=== PATIENT | female | born 1970 | race Caucasian/White ===

== ENCOUNTER 2020-04-25 01:58 | Emergency (ER) | payer MEDICAID ==
[~2020-04-25] VITALS: Ht 158.8 cm; Wt 68.2 kg
[2020-04-25 02:25] LABS: BASOPHILS % (AUTO) 0.4 % (0.0-2.0); EOSINOPHILS % (AUTO) 1.2 % (1.0-6.0); HEMATOCRIT 40.5 % (36-46); HEMOGLOBIN 13.7 g/dL (12.0-16.0); LYMPHOCYTES # (AUTO) 3.3 K/uL (1.0-4.8); LYMPHOCYTES % (AUTO) 46.9 % (22.0-44.0); MEAN CORPUSCULAR HGB CONC 33.8 G/dL (31.0-37.0); MEAN CORPUSCULAR VOLUME 89 fL (80-100); MONOCYTES # (AUTO) 0.4 K/uL (0.1-1.0); MONOCYTES % (AUTO) 6.3 % (2.0-9.0); NEUTROPHILS # (AUTO) 3.2 K/uL (1.8-7.7); NEUTROPHILS % (AUTO) 45.2 % (40.0-70.0); PLATELET COUNT (AUTO) 276 K/uL (150-450); RED BLOOD CELL COUNT(AUTO) 4.56 MIL/uL (4.00-5.20); RED CELL DISTRIBUTION WIDTH 13.5 % (11.5-14.5)
[2020-04-25 02:34] LABS: ANION GAP 12 mmol/L (8-16); CALCIUM, TOTAL 9.2 mg/dL (8.8-10.5); CARBON DIOXIDE 26 mmol/L (22-29); CHLORIDE 104 mmol/L (98-107); CREATININE 0.73 mg/dL (0.60-1.30); GLOMERULAR FILTR. RATE CALC > 60 mL/min (>60); GLUCOSE,RANDOM 110 mg/dL (70-110); POTASSIUM 3.6 mmol/L (3.5-5.1); SODIUM SERUM 142 mmol/L (136-145); UREA NITROGEN, BLOOD 9 mg/dL (7-18)
[2020-04-25 02:40] LABS: ALANINE AMINOTRANSFERASE 40 U/L (12-78); ALBUMIN 3.6 g/dL (3.4-5.0); ALKALINE PHOSPHATASE 131 U/L (46-116); ASPARTATE AMINOTRANSFERASE 24 U/L (15-37); BILIRUBIN,TOTAL 0.4 mg/dL (0.1-1.0); TOTAL PROTEIN, SERUM 7.2 g/dL (6.4-8.2)
[2020-04-25 04:39] VITALS: BP 126/66
== END 2020-04-25 07:06 | disposition home or self-care (01) ==
LOC: EMS 02:04
DX: F20.9 Schizophrenia, unspecified (principal); F15.10 Other stimulant abuse, uncomplicated; F17.210 Nicotine dependence, cigarettes, uncomplicated
CPT/HCPCS: 36415; 80053; 85025; 99284; G0480

== ENCOUNTER 2020-08-11 19:18 | Inpatient (IN) | payer MEDICAID ==
[~2020-08-11] VITALS: Ht 160 cm; Wt 74.0 kg
[2020-08-11 20:27] LABS: COVID AG,FIA SOURCE NASOPHARYNGEAL
[2020-08-11] MEDS ORDERED: ZOLPIDEM TARTRATE 10 MG TABLET PO PRN (21:30)
[2020-08-11] MEDS ORDERED: LORazepam 2 MG/ML VIAL IM ONE (22:00)
[2020-08-11] MEDS ORDERED: DiphenhydrAMINE HCL 50 MG/ML VIAL IM ONE (22:00)
[2020-08-11] MEDS ORDERED: HALOPERIDOL LACTATE 5 MG/ML VIAL IM ONE (22:00)
[2020-08-11 23:47] LABS: GLUCOSE,POINT OF CARE 125 MG/DL (70-110)
[2020-08-11 23:56] LABS: BASOPHILS % (AUTO) 0.3 % (0.0-2.0); EOSINOPHILS % (AUTO) 1.4 % (1.0-6.0); HEMATOCRIT 40.1 % (36-46); HEMOGLOBIN 13.4 g/dL (12.0-16.0); LYMPHOCYTES # (AUTO) 3.7 K/uL (1.0-4.8); LYMPHOCYTES % (AUTO) 55.5 % (22.0-44.0); MEAN CORPUSCULAR HEMOGLOBIN 29.4 pg (26.0-34.0); MEAN CORPUSCULAR HGB CONC 33.4 G/dL (31.0-37.0); MEAN CORPUSCULAR VOLUME 88 fL (80-100); MONOCYTES # (AUTO) 0.4 K/uL (0.1-1.0); MONOCYTES % (AUTO) 5.5 % (2.0-9.0); NEUTROPHILS # (AUTO) 2.5 K/uL (1.8-7.7); NEUTROPHILS % (AUTO) 37.3 % (40.0-70.0); PLATELET COUNT (AUTO) 244 K/uL (150-450); RED BLOOD CELL COUNT(AUTO) 4.55 MIL/uL (4.00-5.20); RED CELL DISTRIBUTION WIDTH 13.5 % (11.5-14.5)
[2020-08-12 00:10] LABS: ANION GAP 9 mmol/L (8-16); CALCIUM, TOTAL 8.8 mg/dL (8.8-10.5); CARBON DIOXIDE 26 mmol/L (22-29); CHLORIDE 107 mmol/L (98-107); CREATININE 0.69 mg/dL (0.60-1.30); GLOMERULAR FILTR. RATE CALC > 60 mL/min (>60); GLUCOSE,RANDOM 105 mg/dL (70-110); POTASSIUM 3.5 mmol/L (3.5-5.1); SODIUM SERUM 142 mmol/L (136-145); UREA NITROGEN, BLOOD 9 mg/dL (7-18)
[2020-08-12 00:16] LABS: ALANINE AMINOTRANSFERASE 38 U/L (12-78); ALBUMIN 3.4 g/dL (3.4-5.0); ALKALINE PHOSPHATASE 130 U/L (46-116); ASPARTATE AMINOTRANSFERASE 22 U/L (15-37); BILIRUBIN,TOTAL 0.4 mg/dL (0.1-1.0); TOTAL PROTEIN, SERUM 6.3 g/dL (6.4-8.2)
[2020-08-12] MEDS ORDERED: LOPERAMIDE HCL 2 MG CAPSULE PO PRN (07:45)
[2020-08-12] MEDS ORDERED: PETROLATUM,WHITE 28 GM JELLY TP PRN (07:45)
[2020-08-12] MEDS ORDERED: DOCUSATE SODIUM 100 MG CAPSULE PO PRN (07:45)
[2020-08-12] MEDS ORDERED: MAG HYDROX/AL HYDROX/SIMETH ES 30 ML SUSPENSION UDCUP PO PRN (07:45)
[2020-08-12] MEDS ORDERED: MAGNESIUM HYDROXIDE SUSPENSION 30 ML UDCUP PO PRN (07:45)
[2020-08-12] MEDS ORDERED: IBUPROFEN 400 MG TABLET PO PRN (07:45)
[2020-08-12] MEDS ORDERED: ONDANSETRON HCL 4 MG TABLET PO PRN (07:45)
[2020-08-12] MEDS ORDERED: NICOTINE 14 MG/24 HOUR PATCH TD PRN (07:45)
[2020-08-12] MEDS ORDERED: CloNIDine HCL 0.1 MG TABLET PO PRN (07:45)
[2020-08-12] MEDS ORDERED: ACETAMINOPHEN 325 MG TABLET PO PRN (07:45)
[2020-08-12] MEDS ORDERED: GuaiFENesin/D-METHORPHAN [SUGAR-FREE] 200-20MG/10 ML SYRUP UDCUP PO PRN (07:45)
[2020-08-12] MEDS ORDERED: ALBUTEROL SULFATE HFA 90 MCG/PUFF 8 GM INHALER IH PRN (07:45)
[2020-08-12 16:39] VITALS: BP 129/104
[2020-08-12] MEDS: OLANZapine 5 MG TABLET PO SCH (16:43)
[2020-08-13] MEDS: OLANZapine 5 MG TABLET PO SCH ×2 (09:00→17:00)
[2020-08-13] MEDS: LORazepam 2 MG TABLET PO PRN (17:23)
[2020-08-13] MEDS: HALOPERIDOL 5 MG TABLET PO PRN (17:23)
[2020-08-14 05:58] VITALS: BP 142/96
[2020-08-14] MEDS ORDERED: HALOPERIDOL LACTATE 5 MG/ML VIAL ONE (07:31)
[2020-08-14] MEDS ORDERED: DiphenhydrAMINE HCL 50 MG/ML VIAL ONE (07:31)
[2020-08-14] MEDS ORDERED: LORazepam 2 MG/ML VIAL ONE (07:31)
[2020-08-14] MEDS ORDERED: HALOPERIDOL LACTATE 5 MG/ML VIAL IM ONE (07:45)
[2020-08-14] MEDS ORDERED: DiphenhydrAMINE HCL 50 MG/ML VIAL IM ONE (07:45)
[2020-08-14] MEDS ORDERED: LORazepam 2 MG/ML VIAL IM ONE (07:45)
[2020-08-14] MEDS ORDERED: LORazepam 2 MG/ML VIAL IVP ONE (07:45)
[2020-08-14] MEDS: OLANZapine 5 MG TABLET PO SCH ×3 (09:00→17:00)
[2020-08-14 10:13] VITALS: BP 100/56
[2020-08-15 06:15] VITALS: BP 102/61
[2020-08-15] MEDS ORDERED: LORazepam 2 MG/ML VIAL ONE (08:03)
[2020-08-15] MEDS ORDERED: DiphenhydrAMINE HCL 50 MG/ML VIAL ONE (08:04)
[2020-08-15] MEDS ORDERED: HALOPERIDOL LACTATE 5 MG/ML VIAL ONE (08:04)
[2020-08-15] MEDS: OLANZapine 5 MG TABLET PO SCH ×3 (08:13→18:00)
[2020-08-15] MEDS ORDERED: HALOPERIDOL LACTATE 5 MG/ML VIAL IM ONE (08:15)
[2020-08-15] MEDS ORDERED: LORazepam 2 MG/ML VIAL IM ONE (08:15)
[2020-08-15] MEDS ORDERED: DiphenhydrAMINE HCL 50 MG/ML VIAL IM ONE (08:15)
[2020-08-16] MEDS ORDERED: HALOPERIDOL LACTATE 5 MG/ML VIAL IM ONE (08:15)
[2020-08-16] MEDS ORDERED: LORazepam 2 MG/ML VIAL IM ONE (08:15)
[2020-08-16] MEDS ORDERED: DiphenhydrAMINE HCL 50 MG/ML VIAL IM ONE (08:15)
[2020-08-16] MEDS: OLANZapine 5 MG TABLET PO SCH ×2 (08:44→16:31)
[2020-08-16 16:18] VITALS: BP 132/77
[2020-08-17] MEDS: OLANZapine 5 MG TABLET PO SCH ×2 (08:32→16:06)
[2020-08-17] MEDS: LORazepam 2 MG TABLET PO PRN (08:32)
[2020-08-17] MEDS: HALOPERIDOL 5 MG TABLET PO PRN (16:06)
[2020-08-17 16:14] VITALS: BP 127/68
[2020-08-18] MEDS: LORazepam 2 MG TABLET PO PRN (07:47)
[2020-08-18] MEDS: HALOPERIDOL 5 MG TABLET PO PRN (07:47)
[2020-08-18 08:08] VITALS: BP 129/78
[2020-08-18] MEDS: OLANZapine 5 MG TABLET PO SCH (08:08)
[2020-08-18] MEDS ORDERED: OLAN5TAB52 PO (12:42)
== END 2020-08-18 14:30 | disposition home or self-care (01) | DRG 750 ==
LOC: EMS 19:18 → B3A 22:00
PROVIDERS: ADMIT Psychiatry & Neurology Psychiatry; ATTEND Psychiatry & Neurology Psychiatry
DX: F20.9 Schizophrenia, unspecified (principal); Z59.0 Homelessness; D72.829 Elevated white blood cell count, unspecified; F12.90 Cannabis use, unspecified, uncomplicated; Z20.822 Contact with and (suspected) exposure to COVID-19; R00.0 Tachycardia, unspecified; F17.210 Nicotine dependence, cigarettes, uncomplicated
CPT/HCPCS: 80053; 82962; 85025; 99285; G0480; J1200; J1630; J2060

== ENCOUNTER 2021-04-18 16:21 | Inpatient (IN) | payer MEDICAID ==
[~2021-04-18] VITALS: Ht 162.6 cm; Wt 71.2 kg
[~2021-04-18 16:21] MED LIST: OLAN5TAB52 PO
[2021-04-18 19:32] LABS: COVID AG,FIA SOURCE NASOPHARYNGEAL
[2021-04-19] MEDS ORDERED: LORazepam 2 MG/ML VIAL IM ONE (14:00)
[2021-04-19] MEDS ORDERED: HALOPERIDOL LACTATE 5 MG/ML VIAL IM ONE (14:00)
[2021-04-19] MEDS ORDERED: DiphenhydrAMINE HCL 50 MG/ML VIAL IM ONE (14:00)
[2021-04-19 14:40] VITALS: BP 119/93
[2021-04-19 15:26] VITALS: BP 119/93
[2021-04-19] MEDS ORDERED: MAGNESIUM HYDROXIDE SUSPENSION 30 ML UDCUP PO PRN (17:15)
[2021-04-19] MEDS ORDERED: GuaiFENesin/D-METHORPHAN [SUGAR-FREE] 200-20MG/10 ML SYRUP UDCUP PO PRN (17:15)
[2021-04-19] MEDS ORDERED: PALIPERIDONE PALMITATE 234 MG/1.5 ML SYRINGE IM ONE (17:15)
[2021-04-19] MEDS ORDERED: ACETAMINOPHEN 325 MG TABLET PO PRN (17:15)
[2021-04-19] MEDS ORDERED: HydrOXYzine PAMOATE 50 MG CAPSULE PO PRN (17:15)
[2021-04-19] MEDS ORDERED: TUBERCULIN, PURIFIED PROTEIN DERIVATIVE 5 TU/0.1 ML SYRINGE ID ONE (17:15)
[2021-04-19] MEDS ORDERED: INFLUENZA VIRUS VACCINE QVS 2021-22 (6MO+)/PF 60 MCG/0.5 ML SYRINGE IM. ONE (17:15)
[2021-04-19] MEDS ORDERED: LOPERAMIDE HCL 2 MG CAPSULE PO PRN (17:15)
[2021-04-19] MEDS: MELATONIN 5 MG TABLET PO SCH (19:59)
[2021-04-19] MEDS ORDERED: OLANZapine 5 MG RAPDIS TABLET PO SCH (21:00)
[2021-04-20 02:59] VITALS: BP 112/74
[2021-04-20 08:17] VITALS: BP 110/81
[2021-04-20] MEDS: THIAMINE 100 MG TABLET PO SCH ×2 (08:57→17:00)
[2021-04-20] MEDS: MULTIVITAMINS WITH MINERALS, THERAPEUTIC TABLET PO SCH (08:58)
[2021-04-20] MEDS: OMEGA-3/DHA/EPA/FISH OIL 1,000 MG CAPSULE PO SCH (08:58)
[2021-04-20] MEDS: NALTREXONE HCL 50 MG TABLET PO SCH (08:58)
[2021-04-20] MEDS: FOLIC ACID 1 MG TABLET PO SCH (08:58)
[2021-04-20] MEDS ORDERED: LORazepam 2 MG/ML VIAL ONE (13:12)
[2021-04-20] MEDS ORDERED: HALOPERIDOL LACTATE 5 MG/ML VIAL ONE (13:12)
[2021-04-20] MEDS ORDERED: DiphenhydrAMINE HCL 50 MG/ML VIAL ONE (13:12)
[2021-04-20] MEDS ORDERED: LORazepam 2 MG/ML VIAL IM ONE (13:20)
[2021-04-20] MEDS ORDERED: DiphenhydrAMINE HCL 50 MG/ML VIAL IM ONE (13:20)
[2021-04-20] MEDS ORDERED: HALOPERIDOL LACTATE 5 MG/ML VIAL IM ONE (13:20)
[2021-04-20] MEDS: MELATONIN 5 MG TABLET PO SCH (21:00)
[2021-04-20] MEDS: OLANZapine 5 MG RAPDIS TABLET PO SCH (21:00)
[2021-04-21 04:28] VITALS: BP 108/74
[2021-04-21 08:11] VITALS: BP 116/77
[2021-04-21] MEDS: MULTIVITAMINS WITH MINERALS, THERAPEUTIC TABLET PO SCH (09:00)
[2021-04-21] MEDS: OMEGA-3/DHA/EPA/FISH OIL 1,000 MG CAPSULE PO SCH (09:00)
[2021-04-21] MEDS: NALTREXONE HCL 50 MG TABLET PO SCH (09:00)
[2021-04-21] MEDS: FOLIC ACID 1 MG TABLET PO SCH (09:00)
[2021-04-21] MEDS: THIAMINE 100 MG TABLET PO SCH ×2 (09:00→16:26)
[2021-04-21] MEDS ORDERED: LORazepam 2 MG/ML VIAL ONE (15:34)
[2021-04-21] MEDS ORDERED: DiphenhydrAMINE HCL 50 MG/ML VIAL ONE (15:35)
[2021-04-21] MEDS ORDERED: HALOPERIDOL LACTATE 5 MG/ML VIAL ONE (15:35)
[2021-04-21] MEDS ORDERED: DiphenhydrAMINE HCL 50 MG/ML VIAL IM ONE (15:45)
[2021-04-21] MEDS ORDERED: HALOPERIDOL LACTATE 5 MG/ML VIAL IM ONE (15:45)
[2021-04-21] MEDS ORDERED: LORazepam 2 MG/ML VIAL IM ONE (15:45)
[2021-04-21] MEDS: OLANZapine 5 MG RAPDIS TABLET PO SCH (20:20)
[2021-04-21] MEDS: MELATONIN 5 MG TABLET PO SCH (20:20)
[2021-04-22 01:57] VITALS: BP 114/68
[2021-04-22] MEDS: NALTREXONE HCL 50 MG TABLET PO SCH (09:00)
[2021-04-22] MEDS: OMEGA-3/DHA/EPA/FISH OIL 1,000 MG CAPSULE PO SCH (09:00)
[2021-04-22] MEDS: MULTIVITAMINS WITH MINERALS, THERAPEUTIC TABLET PO SCH (09:00)
[2021-04-22] MEDS: FOLIC ACID 1 MG TABLET PO SCH (09:00)
[2021-04-22] MEDS: THIAMINE 100 MG TABLET PO SCH ×2 (09:00→17:09)
[2021-04-22] MEDS: LORazepam 2 MG TABLET PO PRN (13:54)
[2021-04-22] MEDS: OLANZapine 5 MG RAPDIS TABLET PO SCH (20:04)
[2021-04-22] MEDS: MELATONIN 5 MG TABLET PO SCH (20:04)
[2021-04-23] MEDS ORDERED: PALIPERIDONE PALMITATE 156 MG/ML SYRINGE IM ONE (09:00)
[2021-04-23] MEDS: NALTREXONE HCL 50 MG TABLET PO SCH (09:06)
[2021-04-23] MEDS: THIAMINE 100 MG TABLET PO SCH ×2 (09:06→16:07)
[2021-04-23] MEDS: OMEGA-3/DHA/EPA/FISH OIL 1,000 MG CAPSULE PO SCH (09:06)
[2021-04-23] MEDS: MULTIVITAMINS WITH MINERALS, THERAPEUTIC TABLET PO SCH (09:06)
[2021-04-23] MEDS: FOLIC ACID 1 MG TABLET PO SCH (09:06)
[2021-04-23] MEDS: LORazepam 2 MG TABLET PO PRN (15:51)
[2021-04-23 16:13] VITALS: BP 131/76
[2021-04-23] MEDS: OLANZapine 5 MG RAPDIS TABLET PO SCH (20:12)
[2021-04-23] MEDS: MELATONIN 5 MG TABLET PO SCH (20:13)
[2021-04-24 03:14] VITALS: BP 124/71
[2021-04-24] MEDS: OMEGA-3/DHA/EPA/FISH OIL 1,000 MG CAPSULE PO SCH (08:18)
[2021-04-24] MEDS: THIAMINE 100 MG TABLET PO SCH ×2 (08:18→16:43)
[2021-04-24] MEDS: NALTREXONE HCL 50 MG TABLET PO SCH (08:18)
[2021-04-24] MEDS: FOLIC ACID 1 MG TABLET PO SCH (08:18)
[2021-04-24] MEDS: MULTIVITAMINS WITH MINERALS, THERAPEUTIC TABLET PO SCH (08:18)
[2021-04-24] MEDS: OLANZapine 5 MG RAPDIS TABLET PO PRN (08:19)
[2021-04-24] MEDS: LORazepam 2 MG TABLET PO PRN ×2 (08:19→16:43)
[2021-04-24 16:13] VITALS: BP 149/65
[2021-04-24] MEDS: MELATONIN 5 MG TABLET PO SCH (20:12)
[2021-04-24] MEDS: OLANZapine 5 MG RAPDIS TABLET PO SCH (20:13)
[2021-04-25 01:00] VITALS: BP 134/71
[2021-04-25] MEDS: OMEGA-3/DHA/EPA/FISH OIL 1,000 MG CAPSULE PO SCH (08:46)
[2021-04-25] MEDS: FOLIC ACID 1 MG TABLET PO SCH (08:46)
[2021-04-25] MEDS: NALTREXONE HCL 50 MG TABLET PO SCH (08:46)
[2021-04-25] MEDS: OLANZapine 5 MG RAPDIS TABLET PO PRN (08:46)
[2021-04-25] MEDS: THIAMINE 100 MG TABLET PO SCH ×2 (08:46→16:37)
[2021-04-25] MEDS: LORazepam 2 MG TABLET PO PRN (08:46)
[2021-04-25] MEDS: MULTIVITAMINS WITH MINERALS, THERAPEUTIC TABLET PO SCH (08:46)
[2021-04-25] MEDS ORDERED: PALIPERIDONE PALMITATE 234 MG/1.5 ML SYRINGE IM ONE (15:30)
[2021-04-25 16:25] VITALS: BP 113/69
[2021-04-25] MEDS: MELATONIN 5 MG TABLET PO SCH (20:04)
[2021-04-25] MEDS ORDERED: OLANZapine 10 MG RAPDIS TABLET PO SCH (21:00)
[2021-04-26 02:02] VITALS: BP 118/72
[2021-04-26 08:16] VITALS: BP 124/79
[2021-04-26] MEDS: NALTREXONE HCL 50 MG TABLET PO SCH (08:22)
[2021-04-26] MEDS: OMEGA-3/DHA/EPA/FISH OIL 1,000 MG CAPSULE PO SCH (08:22)
[2021-04-26] MEDS: THIAMINE 100 MG TABLET PO SCH ×2 (08:22→16:42)
[2021-04-26] MEDS: LORazepam 2 MG TABLET PO PRN ×2 (08:23→16:43)
[2021-04-26] MEDS: OLANZapine 5 MG RAPDIS TABLET PO PRN ×2 (08:23→16:43)
[2021-04-26] MEDS: MULTIVITAMINS WITH MINERALS, THERAPEUTIC TABLET PO SCH (08:23)
[2021-04-26] MEDS: FOLIC ACID 1 MG TABLET PO SCH (08:23)
[2021-04-26 16:25] VITALS: BP 135/79
[2021-04-26] MEDS: MELATONIN 5 MG TABLET PO SCH (20:24)
[2021-04-27 00:04] VITALS: BP 123/73
[2021-04-27 06:56] LABS: BASOPHILS % (AUTO) 0.5 % (0.0-2.0); EOSINOPHILS % (AUTO) 1.5 % (1.0-6.0); HEMATOCRIT 39.5 % (36-46); HEMOGLOBIN 13.4 g/dL (12.0-16.0); LYMPHOCYTES # (AUTO) 3.1 K/uL (1.0-4.8); LYMPHOCYTES % (AUTO) 40.7 % (22.0-44.0); MEAN CORPUSCULAR HEMOGLOBIN 29.8 pg (26.0-34.0); MEAN CORPUSCULAR VOLUME 88 fL (80-100); MONOCYTES # (AUTO) 0.5 K/uL (0.1-1.0); MONOCYTES % (AUTO) 6.7 % (2.0-9.0); NEUTROPHILS # (AUTO) 3.9 K/uL (1.8-7.7); NEUTROPHILS % (AUTO) 50.6 % (40.0-70.0); PLATELET COUNT (AUTO) 233 K/uL (150-450); RED BLOOD CELL COUNT(AUTO) 4.51 MIL/uL (4.00-5.20); RED CELL DISTRIBUTION WIDTH 13.3 % (11.5-14.5)
[2021-04-27 07:22] LABS: ALANINE AMINOTRANSFERASE 44 U/L (12-78); ALBUMIN 3.1 g/dL (3.4-5.0); ALKALINE PHOSPHATASE 121 U/L (46-116); ANION GAP 6 mmol/L (8-16); ASPARTATE AMINOTRANSFERASE 15 U/L (15-37); BILIRUBIN,TOTAL 0.2 mg/dL (0.1-1.0); CALCIUM, TOTAL 9.1 mg/dL (8.8-10.5); CARBON DIOXIDE 28 mmol/L (22-29); CHLORIDE 105 mmol/L (98-107); CHOLESTEROL 167 mg/dL (131-200); CREATININE 0.58 mg/dL (0.60-1.30); FREE T4 (FREE THYROXINE) 0.71 ng/dL (0.76-1.46); GLUCOSE,RANDOM 128 mg/dL (70-110); HDL CHOLESTEROL 55 mg/dL (40-60); LDL CHOL (CALC.) 62 mg/dL (0-130); POTASSIUM 4.2 mmol/L (3.5-5.1); SODIUM SERUM 139 mmol/L (136-145); TOTAL PROTEIN, SERUM 6.8 g/dL (6.4-8.2); TRIGLYCERIDES 252 mg/dL (15-150); UREA NITROGEN, BLOOD 13 mg/dL (7-18)
[2021-04-27 07:28] LABS: GLOMERULAR FILTR. RATE CALC > 60 mL/min (>60)
[2021-04-27] MEDS: FOLIC ACID 1 MG TABLET PO SCH (08:02)
[2021-04-27] MEDS: MULTIVITAMINS WITH MINERALS, THERAPEUTIC TABLET PO SCH (08:02)
[2021-04-27] MEDS: OMEGA-3/DHA/EPA/FISH OIL 1,000 MG CAPSULE PO SCH (08:02)
[2021-04-27] MEDS: OLANZapine 5 MG RAPDIS TABLET PO PRN (08:02)
[2021-04-27] MEDS: NALTREXONE HCL 50 MG TABLET PO SCH (08:02)
[2021-04-27] MEDS: THIAMINE 100 MG TABLET PO SCH ×2 (08:02→15:59)
[2021-04-27] MEDS: LORazepam 2 MG TABLET PO PRN (08:02)
[2021-04-27 08:21] VITALS: BP 139/98
[2021-04-27] MEDS ORDERED: GABAPENTIN 400 MG CAPSULE PO PRN (15:30)
[2021-04-27 16:30] VITALS: BP 130/88
[2021-04-27] MEDS: MELATONIN 5 MG TABLET PO SCH (20:15)
[2021-04-27] MEDS: MAG HYDROX/AL HYDROX/SIMETH ES 30 ML SUSPENSION UDCUP PO PRN (22:17)
[2021-04-28 01:22] VITALS: BP 122/71
[2021-04-28] MEDS: MULTIVITAMINS WITH MINERALS, THERAPEUTIC TABLET PO SCH (08:00)
[2021-04-28] MEDS: THIAMINE 100 MG TABLET PO SCH ×2 (08:00→16:39)
[2021-04-28] MEDS: FOLIC ACID 1 MG TABLET PO SCH (08:01)
[2021-04-28] MEDS: OLANZapine 5 MG RAPDIS TABLET PO PRN ×2 (08:01→12:42)
[2021-04-28] MEDS: OMEGA-3/DHA/EPA/FISH OIL 1,000 MG CAPSULE PO SCH (08:01)
[2021-04-28] MEDS: NALTREXONE HCL 50 MG TABLET PO SCH (08:01)
[2021-04-28 08:13] VITALS: BP 122/66
[2021-04-28] MEDS ORDERED: LORazepam 2 MG TABLET PO ONE (13:15)
[2021-04-28] MEDS ORDERED: HALOPERIDOL LACTATE 5 MG/ML VIAL IM ONE (14:45)
[2021-04-28] MEDS ORDERED: LORazepam 2 MG/ML VIAL ONE (14:45)
[2021-04-28] MEDS ORDERED: DiphenhydrAMINE HCL 50 MG/ML VIAL IM ONE (14:45)
[2021-04-28] MEDS ORDERED: DiphenhydrAMINE HCL 50 MG/ML VIAL ONE (14:45)
[2021-04-28] MEDS ORDERED: LORazepam 2 MG/ML VIAL IM ONE (14:45)
[2021-04-28] MEDS ORDERED: HALOPERIDOL LACTATE 5 MG/ML VIAL ONE (14:45)
[2021-04-28] MEDS: OLANZapine 5 MG RAPDIS TABLET PO SCH (20:41)
[2021-04-28] MEDS: MELATONIN 5 MG TABLET PO SCH (20:41)
[2021-04-29 01:10] VITALS: BP 126/72
[2021-04-29] MEDS: FOLIC ACID 1 MG TABLET PO SCH (08:07)
[2021-04-29] MEDS: OMEGA-3/DHA/EPA/FISH OIL 1,000 MG CAPSULE PO SCH (08:07)
[2021-04-29] MEDS: LORazepam 2 MG TABLET PO PRN ×2 (08:07→16:21)
[2021-04-29] MEDS: MULTIVITAMINS WITH MINERALS, THERAPEUTIC TABLET PO SCH (08:07)
[2021-04-29] MEDS: THIAMINE 100 MG TABLET PO SCH ×2 (08:07→16:20)
[2021-04-29] MEDS: NALTREXONE HCL 50 MG TABLET PO SCH (08:07)
[2021-04-29] MEDS: OLANZapine 5 MG RAPDIS TABLET PO PRN ×2 (08:08→16:21)
[2021-04-29] MEDS ORDERED: PALIPERIDONE PALMITATE 156 MG/ML SYRINGE IM ONE (09:00)
[2021-04-29 09:10] VITALS: BP 145/74
[2021-04-29] MEDS: MELATONIN 5 MG TABLET PO SCH (21:07)
[2021-04-29] MEDS: OLANZapine 5 MG RAPDIS TABLET PO SCH (21:08)
[2021-04-30 04:25] VITALS: BP 129/77
[2021-04-30 08:46] VITALS: BP 120/83
[2021-04-30] MEDS: NALTREXONE HCL 50 MG TABLET PO SCH (09:07)
[2021-04-30] MEDS: OMEGA-3/DHA/EPA/FISH OIL 1,000 MG CAPSULE PO SCH (09:07)
[2021-04-30] MEDS: MULTIVITAMINS WITH MINERALS, THERAPEUTIC TABLET PO SCH (09:07)
[2021-04-30] MEDS: LORazepam 2 MG TABLET PO PRN (11:00)
[2021-04-30] MEDS: OLANZapine 5 MG RAPDIS TABLET PO PRN (11:07)
[2021-04-30] MEDS: OLANZapine 5 MG RAPDIS TABLET PO SCH (20:33)
[2021-04-30] MEDS: MELATONIN 5 MG TABLET PO SCH (20:34)
[2021-05-01] MEDS: MAG HYDROX/AL HYDROX/SIMETH ES 30 ML SUSPENSION UDCUP PO PRN ×2 (02:13→08:37)
[2021-05-01 03:38] VITALS: BP 134/75
[2021-05-01] MEDS: LORazepam 2 MG TABLET PO PRN (07:56)
[2021-05-01] MEDS: OMEGA-3/DHA/EPA/FISH OIL 1,000 MG CAPSULE PO SCH (08:05)
[2021-05-01] MEDS: MULTIVITAMINS WITH MINERALS, THERAPEUTIC TABLET PO SCH (08:05)
[2021-05-01] MEDS: NALTREXONE HCL 50 MG TABLET PO SCH (08:05)
[2021-05-01 08:18] VITALS: BP 126/87
[2021-05-01 16:10] VITALS: BP 140/88
[2021-05-01] MEDS: OLANZapine 5 MG RAPDIS TABLET PO SCH (21:30)
[2021-05-01] MEDS: MELATONIN 5 MG TABLET PO SCH (21:30)
[2021-05-01] MEDS: ZOLPIDEM TARTRATE 10 MG TABLET PO PRN (22:38)
[2021-05-02 00:37] VITALS: BP 134/82
[2021-05-02 08:05] VITALS: BP 122/81
[2021-05-02] MEDS: MULTIVITAMINS WITH MINERALS, THERAPEUTIC TABLET PO SCH (08:12)
[2021-05-02] MEDS: NALTREXONE HCL 50 MG TABLET PO SCH (08:12)
[2021-05-02] MEDS: OLANZapine 5 MG RAPDIS TABLET PO PRN (08:12)
[2021-05-02] MEDS: OMEGA-3/DHA/EPA/FISH OIL 1,000 MG CAPSULE PO SCH (08:12)
[2021-05-02] MEDS: LORazepam 2 MG TABLET PO PRN (08:12)
[2021-05-02 16:26] VITALS: BP 120/70
[2021-05-02] MEDS: ZOLPIDEM TARTRATE 10 MG TABLET PO PRN ×2 (20:12→22:53)
[2021-05-02] MEDS: MELATONIN 5 MG TABLET PO SCH (21:00)
[2021-05-02] MEDS ORDERED: OLANZapine 10 MG RAPDIS TABLET PO SCH (21:00)
[2021-05-02] MEDS ORDERED: MELA5TAB40 PO (21:54)
[2021-05-02] MEDS ORDERED: NALT50TA PO (21:54)
[2021-05-02] MEDS ORDERED: OMEG-108 PO (21:54)
[2021-05-02] MEDS ORDERED: OLAN10TA26 PO (21:54)
[2021-05-03 00:52] VITALS: BP 116/75
[2021-05-03] MEDS: NALTREXONE HCL 50 MG TABLET PO SCH (08:08)
[2021-05-03] MEDS: OMEGA-3/DHA/EPA/FISH OIL 1,000 MG CAPSULE PO SCH (08:08)
[2021-05-03] MEDS: MULTIVITAMINS WITH MINERALS, THERAPEUTIC TABLET PO SCH (08:08)
[2021-05-03] MEDS: LORazepam 2 MG TABLET PO PRN (08:09)
[2021-05-03] MEDS: OLANZapine 5 MG RAPDIS TABLET PO PRN (08:09)
[2021-05-03 08:24] VITALS: BP 117/76
[2021-05-03 08:56] LABS: GLUCOMETER DEV NAME(LOC) POC.BV
[2021-05-03] MEDS: MAG HYDROX/AL HYDROX/SIMETH ES 30 ML SUSPENSION UDCUP PO PRN (09:01)
== END 2021-05-03 12:17 | disposition home or self-care (01) | DRG 750 ==
LOC: EMS 16:55 → B3A 04-19 13:00
PROVIDERS: ADMIT Psychiatry & Neurology Psychiatry; ATTEND Psychiatry & Neurology Psychiatry
DX: F25.0 Schizoaffective disorder, bipolar type (principal); Z59.00 Homelessness unspecified; F17.210 Nicotine dependence, cigarettes, uncomplicated; Z20.822 Contact with and (suspected) exposure to COVID-19; I10 Essential (primary) hypertension; Z55.9 Problems related to education and literacy, unspecified; Z63.9 Problem related to primary support group, unspecified; Z65.3 Problems related to other legal circumstances; Z91.19 Patient's noncompliance with other medical treatment and regimen
CPT/HCPCS: 80053; 80061; 83036; 84439; 85025; 86592; 99285; J1200; J1630; J2060; Q9967

== ENCOUNTER 2021-05-20 20:53 | Inpatient (IN) | payer MEDICAID ==
[~2021-05-20] VITALS: Ht 162.6 cm; Wt 72.1 kg
[~2021-05-20 20:53] MED LIST changes: +MELA5TAB40 PO; +NALT50TA PO; +OLAN10TA26 PO; -OLAN5TAB52 PO; +OMEG-108 PO
[2021-05-20 23:49] LABS: BASOPHILS % (AUTO) 0.5 % (0.0-2.0); EOSINOPHILS % (AUTO) 1.3 % (1.0-6.0); HEMATOCRIT 36.8 % (36-46); HEMOGLOBIN 12.4 g/dL (12.0-16.0); LYMPHOCYTES # (AUTO) 3.1 K/uL (1.0-4.8); LYMPHOCYTES % (AUTO) 36.1 % (22.0-44.0); MEAN CORPUSCULAR HEMOGLOBIN 29.3 pg (26.0-34.0); MEAN CORPUSCULAR HGB CONC 33.6 G/dL (31.0-37.0); MEAN CORPUSCULAR VOLUME 87 fL (80-100); MONOCYTES # (AUTO) 0.6 K/uL (0.1-1.0); MONOCYTES % (AUTO) 7.2 % (2.0-9.0); NEUTROPHILS # (AUTO) 4.6 K/uL (1.8-7.7); NEUTROPHILS % (AUTO) 54.9 % (40.0-70.0); PLATELET COUNT (AUTO) 269 K/uL (150-450); RED BLOOD CELL COUNT(AUTO) 4.23 MIL/uL (4.00-5.20)
[2021-05-20 23:57] LABS: ANION GAP 8 mmol/L (8-16); CALCIUM, TOTAL 8.7 mg/dL (8.8-10.5); CARBON DIOXIDE 27 mmol/L (22-29); CHLORIDE 101 mmol/L (98-107); CREATININE 0.65 mg/dL (0.60-1.30); GLOMERULAR FILTR. RATE CALC > 60 mL/min (>60); GLUCOSE,RANDOM 127 mg/dL (70-110); POTASSIUM 3.7 mmol/L (3.5-5.1); SODIUM SERUM 136 mmol/L (136-145); UREA NITROGEN, BLOOD 14 mg/dL (7-18)
[2021-05-21 00:07] LABS: ALANINE AMINOTRANSFERASE 22 U/L (12-78); ALBUMIN 3.2 g/dL (3.4-5.0); ALKALINE PHOSPHATASE 128 U/L (46-116); ASPARTATE AMINOTRANSFERASE 15 U/L (15-37); BILIRUBIN,TOTAL 0.3 mg/dL (0.1-1.0); TOTAL PROTEIN, SERUM 6.8 g/dL (6.4-8.2)
[2021-05-21 01:51] LABS: COVID AG,FIA SOURCE NASAL SWAB
[2021-05-21] MEDS ORDERED: LORazepam 2 MG TABLET PO PRN (02:15)
[2021-05-21] MEDS ORDERED: ZOLPIDEM TARTRATE 10 MG TABLET PO PRN (02:15)
[2021-05-21] MEDS ORDERED: HALOPERIDOL 5 MG TABLET PO PRN (02:15)
[2021-05-21 05:05] VITALS: BP 101/61
[2021-05-21 08:13] VITALS: BP 122/69
[2021-05-21 16:12] VITALS: BP 102/69
[2021-05-21] MEDS: OLANZapine 10 MG RAPDIS TABLET PO SCH (21:47)
[2021-05-21] MEDS: MELATONIN 5 MG TABLET PO SCH (21:47)
[2021-05-22 05:49] VITALS: BP 123/79
[2021-05-22 08:12] VITALS: BP 122/74
[2021-05-22] MEDS: NALTREXONE HCL 50 MG TABLET PO SCH (09:45)
[2021-05-22 16:17] VITALS: BP 148/79
[2021-05-22] MEDS: OLANZapine 10 MG RAPDIS TABLET PO SCH (20:08)
[2021-05-22] MEDS: MELATONIN 5 MG TABLET PO SCH (20:09)
[2021-05-23 05:44] VITALS: BP 126/78
[2021-05-23 08:17] VITALS: BP 121/78
[2021-05-23] MEDS: NALTREXONE HCL 50 MG TABLET PO SCH (09:30)
[2021-05-23] MEDS ORDERED: LOPERAMIDE HCL 2 MG CAPSULE PO PRN (10:15)
[2021-05-23] MEDS ORDERED: HydrOXYzine PAMOATE 50 MG CAPSULE PO PRN (10:15)
[2021-05-23] MEDS ORDERED: ACETAMINOPHEN 325 MG TABLET PO PRN (10:15)
[2021-05-23] MEDS ORDERED: GuaiFENesin/D-METHORPHAN [SUGAR-FREE] 200-20MG/10 ML SYRUP UDCUP PO PRN (10:15)
[2021-05-23] MEDS ORDERED: PROMETHAZINE HCL 25 MG TABLET PO PRN (10:15)
[2021-05-23] MEDS ORDERED: MAGNESIUM HYDROXIDE SUSPENSION 30 ML UDCUP PO PRN (10:15)
[2021-05-23] MEDS: THIAMINE 100 MG TABLET PO SCH (16:02)
[2021-05-23 16:40] VITALS: BP 121/67
[2021-05-23] MEDS: MELATONIN 5 MG TABLET PO SCH (20:11)
[2021-05-23] MEDS ORDERED: OLANZapine 5 MG RAPDIS TABLET PO SCH (21:00)
[2021-05-24 06:55] VITALS: BP 126/72
[2021-05-24 08:25] VITALS: BP 121/74
[2021-05-24] MEDS: MULTIVITAMINS WITH MINERALS, THERAPEUTIC TABLET PO SCH (08:44)
[2021-05-24] MEDS: NALTREXONE HCL 50 MG TABLET PO SCH (08:44)
[2021-05-24] MEDS: THIAMINE 100 MG TABLET PO SCH ×2 (08:44→16:29)
[2021-05-24] MEDS: FOLIC ACID 1 MG TABLET PO SCH (08:44)
[2021-05-24] MEDS ORDERED: OLANZapine 5 MG TABLET PO PRN (14:00)
[2021-05-24] MEDS ORDERED: HALOPERIDOL 5 MG TABLET PO SCH (17:00)
[2021-05-24] MEDS ORDERED: BusPIRone HCL 15 MG TABLET PO SCH (17:00)
[2021-05-24 17:01] VITALS: BP 130/99
[2021-05-24] MEDS: MELATONIN 5 MG TABLET PO SCH (20:24)
[2021-05-24] MEDS: OLANZapine 10 MG TABLET PO SCH (20:24)
[2021-05-25 01:14] VITALS: BP 126/87
[2021-05-25 08:22] VITALS: BP 124/75
[2021-05-25] MEDS: FOLIC ACID 1 MG TABLET PO SCH (09:08)
[2021-05-25] MEDS: NALTREXONE HCL 50 MG TABLET PO SCH (09:08)
[2021-05-25] MEDS: MULTIVITAMINS WITH MINERALS, THERAPEUTIC TABLET PO SCH (09:08)
[2021-05-25] MEDS: THIAMINE 100 MG TABLET PO SCH ×2 (09:08→16:10)
[2021-05-25 16:27] VITALS: BP 118/71
[2021-05-25] MEDS: MELATONIN 5 MG TABLET PO SCH (20:10)
[2021-05-25] MEDS: OLANZapine 10 MG TABLET PO SCH (20:10)
[2021-05-25] MEDS ORDERED: PALIPERIDONE PALMITATE 117 MG/0.75 ML SYRINGE IM ONE (20:45)
[2021-05-26 01:29] VITALS: BP 117/67
[2021-05-26] MEDS: THIAMINE 100 MG TABLET PO SCH ×2 (08:19→16:07)
[2021-05-26] MEDS: MULTIVITAMINS WITH MINERALS, THERAPEUTIC TABLET PO SCH (08:19)
[2021-05-26] MEDS: NALTREXONE HCL 50 MG TABLET PO SCH (08:19)
[2021-05-26] MEDS: FOLIC ACID 1 MG TABLET PO SCH (08:19)
[2021-05-26 08:58] VITALS: BP 113/65
[2021-05-26] MEDS: MAG HYDROX/AL HYDROX/SIMETH ES 30 ML SUSPENSION UDCUP PO PRN (14:00)
[2021-05-26 16:22] VITALS: BP 127/76
[2021-05-26] MEDS: OLANZapine 10 MG TABLET PO SCH (20:02)
[2021-05-26] MEDS: DIVALPROEX SODIUM 500 MG ER TABLET PO SCH (20:02)
[2021-05-26] MEDS: MELATONIN 5 MG TABLET PO SCH (20:02)
[2021-05-27 07:06] VITALS: BP 117/64
[2021-05-27 08:49] VITALS: BP 134/68
[2021-05-27] MEDS: FOLIC ACID 1 MG TABLET PO SCH (08:58)
[2021-05-27] MEDS: NALTREXONE HCL 50 MG TABLET PO SCH (08:58)
[2021-05-27] MEDS: THIAMINE 100 MG TABLET PO SCH ×2 (08:58→16:28)
[2021-05-27] MEDS: MULTIVITAMINS WITH MINERALS, THERAPEUTIC TABLET PO SCH (08:58)
[2021-05-27 16:37] VITALS: BP 109/63
[2021-05-27] MEDS: DIVALPROEX SODIUM 500 MG ER TABLET PO SCH (20:03)
[2021-05-27] MEDS: MELATONIN 5 MG TABLET PO SCH (20:03)
[2021-05-27] MEDS: OLANZapine 10 MG TABLET PO SCH (20:04)
[2021-05-28 06:32] VITALS: BP 115/73
[2021-05-28 08:35] VITALS: BP 118/78
[2021-05-28] MEDS: THIAMINE 100 MG TABLET PO SCH ×2 (09:13→16:58)
[2021-05-28] MEDS: NALTREXONE HCL 50 MG TABLET PO SCH (09:13)
[2021-05-28] MEDS: MULTIVITAMINS WITH MINERALS, THERAPEUTIC TABLET PO SCH (09:13)
[2021-05-28] MEDS: FOLIC ACID 1 MG TABLET PO SCH (09:14)
[2021-05-28 16:28] VITALS: BP 101/69
[2021-05-28] MEDS: MAG HYDROX/AL HYDROX/SIMETH ES 30 ML SUSPENSION UDCUP PO PRN (16:59)
[2021-05-28] MEDS: DIVALPROEX SODIUM 500 MG ER TABLET PO SCH (20:29)
[2021-05-28] MEDS: OLANZapine 10 MG TABLET PO SCH (20:30)
[2021-05-28] MEDS: MELATONIN 5 MG TABLET PO SCH (20:30)
[2021-05-29 01:13] VITALS: BP 124/79
[2021-05-29 08:23] VITALS: BP 112/69
[2021-05-29] MEDS: MULTIVITAMINS WITH MINERALS, THERAPEUTIC TABLET PO SCH (09:07)
[2021-05-29] MEDS: THIAMINE 100 MG TABLET PO SCH ×2 (09:07→16:41)
[2021-05-29] MEDS: FOLIC ACID 1 MG TABLET PO SCH (09:07)
[2021-05-29] MEDS: NALTREXONE HCL 50 MG TABLET PO SCH (09:07)
[2021-05-29 16:53] VITALS: BP 105/67
[2021-05-29] MEDS: OLANZapine 10 MG TABLET PO SCH (20:57)
[2021-05-29] MEDS: DIVALPROEX SODIUM 500 MG ER TABLET PO SCH (20:57)
[2021-05-29] MEDS: MELATONIN 5 MG TABLET PO SCH (20:57)
[2021-05-30 06:23] VITALS: BP 108/60
[2021-05-30 08:20] VITALS: BP 121/79
[2021-05-30] MEDS: THIAMINE 100 MG TABLET PO SCH ×2 (09:12→16:19)
[2021-05-30] MEDS: MULTIVITAMINS WITH MINERALS, THERAPEUTIC TABLET PO SCH (09:13)
[2021-05-30] MEDS: FOLIC ACID 1 MG TABLET PO SCH (09:13)
[2021-05-30] MEDS: NALTREXONE HCL 50 MG TABLET PO SCH (09:13)
[2021-05-30 10:41] LABS: GLUCOMETER DEV NAME(LOC) POC.BV
[2021-05-30 16:27] VITALS: BP 105/66
[2021-05-30] MEDS: MELATONIN 5 MG TABLET PO SCH (20:45)
[2021-05-30] MEDS: DIVALPROEX SODIUM 500 MG ER TABLET PO SCH (20:45)
[2021-05-30] MEDS: OLANZapine 10 MG TABLET PO SCH (20:46)
[2021-05-31 04:30] VITALS: BP 135/88
[2021-05-31] MEDS: MULTIVITAMINS WITH MINERALS, THERAPEUTIC TABLET PO SCH (09:41)
[2021-05-31] MEDS: FOLIC ACID 1 MG TABLET PO SCH (09:41)
[2021-05-31] MEDS: NALTREXONE HCL 50 MG TABLET PO SCH (09:41)
[2021-05-31] MEDS: THIAMINE 100 MG TABLET PO SCH ×2 (09:44→16:28)
[2021-05-31 13:07] VITALS: BP 125/88
[2021-05-31 16:24] VITALS: BP 101/68
[2021-05-31] MEDS: MAG HYDROX/AL HYDROX/SIMETH ES 30 ML SUSPENSION UDCUP PO PRN (16:59)
[2021-05-31] MEDS: DIVALPROEX SODIUM 500 MG ER TABLET PO SCH (20:38)
[2021-05-31] MEDS: OLANZapine 10 MG TABLET PO SCH (20:38)
[2021-05-31] MEDS: MELATONIN 5 MG TABLET PO SCH (20:53)
[2021-06-01 05:52] VITALS: BP 116/64
[2021-06-01 08:38] VITALS: BP 103/70
[2021-06-01] MEDS: NALTREXONE HCL 50 MG TABLET PO SCH (08:44)
[2021-06-01] MEDS: THIAMINE 100 MG TABLET PO SCH ×2 (08:44→16:47)
[2021-06-01] MEDS: FOLIC ACID 1 MG TABLET PO SCH (08:44)
[2021-06-01] MEDS: MULTIVITAMINS WITH MINERALS, THERAPEUTIC TABLET PO SCH (08:44)
[2021-06-01 16:17] VITALS: BP 109/69
[2021-06-01] MEDS: MAG HYDROX/AL HYDROX/SIMETH ES 30 ML SUSPENSION UDCUP PO PRN (19:15)
[2021-06-01] MEDS: OLANZapine 10 MG TABLET PO SCH (20:07)
[2021-06-01] MEDS: DIVALPROEX SODIUM 500 MG ER TABLET PO SCH (20:07)
[2021-06-01] MEDS: MELATONIN 5 MG TABLET PO SCH (20:07)
[2021-06-02 02:22] VITALS: BP 111/63
[2021-06-02] MEDS: THIAMINE 100 MG TABLET PO SCH (08:12)
[2021-06-02] MEDS: FOLIC ACID 1 MG TABLET PO SCH (08:12)
[2021-06-02] MEDS: NALTREXONE HCL 50 MG TABLET PO SCH (08:12)
[2021-06-02] MEDS: MULTIVITAMINS WITH MINERALS, THERAPEUTIC TABLET PO SCH (08:12)
[2021-06-02 08:15] VITALS: BP 109/69
[2021-06-02 16:11] VITALS: BP 117/74
[2021-06-02] MEDS: MELATONIN 5 MG TABLET PO SCH (20:10)
[2021-06-02] MEDS: OLANZapine 10 MG TABLET PO SCH (20:10)
[2021-06-02] MEDS: DIVALPROEX SODIUM 500 MG ER TABLET PO SCH (20:10)
[2021-06-03 05:19] VITALS: BP 106/71
[2021-06-03 08:18] VITALS: BP 110/79
[2021-06-03] MEDS: MULTIVITAMINS WITH MINERALS, THERAPEUTIC TABLET PO SCH (08:21)
[2021-06-03] MEDS: NALTREXONE HCL 50 MG TABLET PO SCH (08:21)
[2021-06-03 16:20] VITALS: BP 105/72
[2021-06-03] MEDS: OLANZapine 10 MG TABLET PO SCH (20:07)
[2021-06-03] MEDS: MELATONIN 5 MG TABLET PO SCH (20:07)
[2021-06-03] MEDS: DIVALPROEX SODIUM 500 MG ER TABLET PO SCH (20:07)
[2021-06-04 02:20] VITALS: BP 114/73
[2021-06-04] MEDS: MULTIVITAMINS WITH MINERALS, THERAPEUTIC TABLET PO SCH (08:07)
[2021-06-04] MEDS: NALTREXONE HCL 50 MG TABLET PO SCH (08:07)
[2021-06-04 08:19] VITALS: BP 135/62
[2021-06-04 16:24] VITALS: BP 103/60
[2021-06-04] MEDS: MELATONIN 5 MG TABLET PO SCH (20:10)
[2021-06-04] MEDS: OLANZapine 10 MG TABLET PO SCH (20:11)
[2021-06-04] MEDS: DIVALPROEX SODIUM 500 MG ER TABLET PO SCH (20:11)
[2021-06-05 06:37] VITALS: BP 110/72
[2021-06-05] MEDS: MULTIVITAMINS WITH MINERALS, THERAPEUTIC TABLET PO SCH (08:25)
[2021-06-05] MEDS: NALTREXONE HCL 50 MG TABLET PO SCH (08:26)
[2021-06-05 08:51] VITALS: BP 110/60
[2021-06-05 16:28] VITALS: BP 112/66
[2021-06-05] MEDS: MELATONIN 5 MG TABLET PO SCH (20:31)
[2021-06-05] MEDS: OLANZapine 10 MG TABLET PO SCH (20:31)
[2021-06-05] MEDS: DIVALPROEX SODIUM 500 MG ER TABLET PO SCH (20:31)
[2021-06-05 23:16] LABS: GLUCOMETER DEV NAME(LOC) POC.BV
[2021-06-06] MEDS: MULTIVITAMINS WITH MINERALS, THERAPEUTIC TABLET PO SCH (08:14)
[2021-06-06] MEDS: NALTREXONE HCL 50 MG TABLET PO SCH (08:14)
[2021-06-06 08:20] VITALS: BP 126/79
[2021-06-06] MEDS ORDERED: MELA5TAB40 PO (14:37)
[2021-06-06] MEDS ORDERED: DIVA-80 PO (14:37)
[2021-06-06] MEDS ORDERED: OLAN10 PO (14:37)
[2021-06-06] MEDS ORDERED: NALT50TA PO (14:37)
[2021-06-22] MEDS ORDERED: PALIPERIDONE PALMITATE 117 MG/0.75 ML SYRINGE IM SCH (09:00)
== END 2021-06-06 16:15 | disposition home or self-care (01) | DRG 750 ==
LOC: EMS 20:55 → B3A 05-21 02:41
PROVIDERS: ADMIT Psychiatry & Neurology Psychiatry; ATTEND Psychiatry & Neurology Psychiatry
DX: F25.0 Schizoaffective disorder, bipolar type (principal); Z59.00 Homelessness unspecified; F12.90 Cannabis use, unspecified, uncomplicated; F15.90 Other stimulant use, unspecified, uncomplicated; Z20.822 Contact with and (suspected) exposure to COVID-19; F17.210 Nicotine dependence, cigarettes, uncomplicated; G47.00 Insomnia, unspecified; R73.9 Hyperglycemia, unspecified; I10 Essential (primary) hypertension; Z55.9 Problems related to education and literacy, unspecified; Z63.9 Problem related to primary support group, unspecified; Z65.3 Problems related to other legal circumstances; Z91.14 Patient's other noncompliance with medication regimen
CPT/HCPCS: 80053; 80164; 85025; 99285; G0480; Q9967